=== PATIENT | female | born 1995 | race Caucasian/White ===

== ENCOUNTER → 2019-01-18 | Outpatient (CLI) | payer BC | LOC: BHSO 15:36 | DX: F43.21 Adjustment disorder with depressed mood (principal) ==

== ENCOUNTER → 2019-02-08 | Outpatient (CLI) | payer BC | LOC: BHSO 14:54 | DX: F43.23 Adjustment disorder with mixed anxiety and depressed mood (principal) ==

== ENCOUNTER → 2019-04-07 | Outpatient (CLI) | payer BC | LOC: BHSO 14:59 | DX: F43.23 Adjustment disorder with mixed anxiety and depressed mood (principal) ==